=== PATIENT | male | born 1995 | race Caucasian/White ===

== ENCOUNTER 2017-07-03 20:38 | Emergency (ER) | payer OTHER ==
[2017-07-03] MEDS ORDERED: NS 1,000 ML IV ONE (21:16)
[2017-07-03] MEDS ORDERED: ONDANSETRON 4 MG/2 ML VIAL IVP ONE (21:16)
[2017-07-03 21:22] LABS: PLATELET COUNT 207 10^3/uL (150-400)
[2017-07-03] MEDS ORDERED: KETOROLAC 15 MG/1 ML SDV IVP ONE (21:24)
--- NOTE | 2017-07-03 21:28 | EDPHY ---
H & P Time Seen by Provider: 07/03/17 21:15 HPI/ROS: CHIEF COMPLAINT: Vomiting and diarrhea HISTORY OF PRESENT ILLNESS: 21-year-old male with IDDM presents with vomiting and diarrhea. Onset of vomiting at 11:00 a.m. This morning, multiple episodes of vomiting since then. Unable to tolerate oral fluids or food. Associated with multiple episodes of diarrhea and abdominal cramping. No fever. Blood sugar 250 prior to arrival. He took insulin 3 units of regular insulin just prior to arrival. No prior history of DKA. REVIEW OF SYSTEMS: complete 10 point ROS negative except at noted in the HPI Past Medical/Surgical History: IDDM Social History: Student at [employer] Smoking Status: Never smoked Physical Exam: General Appearance: Alert, pleasant, nontoxic-appearing Eyes: Pupils equal and round, no conjunctival pallor or injection ENT, Mouth: Mucous membranes moist Neck: Normal inspection Respiratory: Lungs are clear to auscultation Cardiovascular: Regular rate and rhythm Gastrointestinal: Abdomen is soft and nontender Back: Normal inspection, no tenderness Neurological: A&O, nonfocal, normal gait Skin: Warm and dry Extremities: Normal inspection Psychiatric: Mood and affect normal Constitutional: Initial Vital Signs Temperature (C) 36.7 C 07/03/17 20:50 Heart Rate 101 H 07/03/17 20:50 Respiratory Rate 17 07/03/17 20:50 Blood Pressure 97/73 L 07/03/17 20:50 O2 Sat (%) 98 07/03/17 20:50 O2 Delivery Mode Room Air Allergies/Adverse Reactions: No Known Allergies Allergy (Unverified 07/03/17 20:54) Home Medications: Medication Instructions Recorded Adderall 10 mg Tablet 07/03/17 Basaglar Kwikpen U-100 07/03/17 Humalog 07/03/17 Medical Decision Making ED Course/Re-evaluation: IV normal saline 1 L and Zofran 4 mg IV given for vomiting and diarrhea. [place] much better after IV fluids and Zofran. Abdomen is remained soft and nontender. Tolerated oral fluids well. Will discharge home with a prepack of Zofran. Differential Diagnosis: Differential diagnosis includes though it is not limited to appendicitis, cholecystitis, diverticulitis, pyelonephritis, bowel perforation, small bowel obstruction. - Data Points Laboratory Results: Laboratory Results 07/03/17 21:10 07/03/17 21:10 Medications Given: Discontinued Medications Sodium Chloride (Ns) 1,000 mls @ 0 mls/hr IV EDNOW ONE; Wide Open PRN Reason: Protocol Stop: 07/03/17 21:17 Last Admin: 07/03/17 21:28 Dose: 1,000 mls Ketorolac Tromethamine (Toradol) 15 mg IVP EDNOW ONE Stop: 07/03/17 21:25 Last Admin: 07/03/17 21:29 Dose: 15 mg Ondansetron HCl (Zofran) 4 mg IVP EDNOW ONE Stop: 07/03/17 21:17 Last Admin: 07/03/17 21:29 Dose: 4 mg Ondansetron HCl (Zofran Odt 4 Mg Prepack#2) 1 btl TAKEHOME EDNOW ONE Stop: 07/03/17 21:30 Last Admin: 07/03/17 23:16 Dose: 1 btl Departure - Departure Disposition: Home, Routine, Self-Care Clinical Impression: Gastroenteritis Condition: Good Instructions: Ondansetron (By mouth), Gastroenteritis (ED) Additional Instructions: 1. Clear liquids for 24 hours. 2. Advance diet as tolerated. I suggest the BRAT diet to start: bananas, rice, applesauce and toast. 3. Return for worsening symptoms, persistent vomiting, abdominal pain, any concerns. 4. Zofran 1 tablet under the tongue every 6 hr as needed for nausea. Referrals: Amberly Cornelius MD [[facility] [place] Primary Care Provider] - As per Instructions Stand Alone Forms: School Excuse
[2017-07-03] MEDS ORDERED: ONDANSETRON 4MG PREPACK#2 BTL TAKEHOME ONE (21:29)
[2017-07-03 23:16] VITALS: BP 113/40
== END 2017-07-03 23:05 | disposition home or self-care (01) ==
DX: K52.9 Noninfective gastroenteritis and colitis, unspecified (principal); E86.9 Volume depletion, unspecified; E11.9 Type 2 diabetes mellitus without complications; Z79.4 Long term (current) use of insulin
CPT/HCPCS: 82947-QW; 96374; J1885; J2405